=== PATIENT | female | born 1935 | race Caucasian/White ===

== ENCOUNTER 2020-12-29 11:05 | Observation (INO) | payer MEDICARE ==
[~2020-12-29] VITALS: Ht 177.8 cm; Wt 93.0 kg
[~2020-12-29 11:05] MED LIST: COMBIVENT0.074 GM/I INH; COREG6.25 MG PO; ECOTRIN81 MG PO; GLUCOSAMINE H1500 MG PO; HYDROCHLOROTHIA25 MG PO; LIPITOR TAB 2020 MG PO; LOTENSIN20 MG PO; NEURONTIN400 MG PO; NORCO 5-325 TA1 EACH PO; NORVASC2.5 MG PO; PLAVIX 75 MG TA75 MG PO; PROTONIX40 MG PO
[2020-12-29 11:52] LABS: HEMOGLOBIN 16.5 gm/dl (12.3-15.3); RED BLOOD COUNT 5.37 M/UL (4.00-5.10); WHITE BLOOD COUNT 7.8 K/UL (4.5-11.0)
[2020-12-29 12:14] LABS: BUN/CREATININE RATIO 14 (0-10)
[2020-12-29] MEDS ORDERED: MELOXICAM5 MG PO (15:11)
[2020-12-30 02:17] LABS: WHITE BLOOD COUNT 8.1 K/UL (4.5-11.0)
[2020-12-30 02:22] LABS: HEMOGLOBIN 14.4 gm/dl (12.3-15.3); RED BLOOD COUNT 4.69 M/UL (4.00-5.10)
[2020-12-30 02:42] LABS: BUN/CREATININE RATIO 16 (0-10)
== END 2020-12-30 13:19 | disposition home or self-care (01) ==
LOC: ER1 11:05 → CDU 12:48 → M/S 14:44
PROVIDERS: Emergency Medicine; Physician Assistant Medical; ADMIT Internal Medicine
DX: R07.89 Other chest pain (principal); R79.1 Abnormal coagulation profile; I25.10 Atherosclerotic heart disease of native coronary artery without angina pectoris; I10 Essential (primary) hypertension; E11.9 Type 2 diabetes mellitus without complications; E78.5 Hyperlipidemia, unspecified; Z20.822 Contact with and (suspected) exposure to COVID-19; Z86.73 Personal history of transient ischemic attack (TIA), and cerebral infarction without residual deficits; Z95.5 Presence of coronary angioplasty implant and graft; Z79.82 Long term (current) use of aspirin; Z90.2 Acquired absence of lung [part of]; Z79.1 Long term (current) use of non-steroidal anti-inflammatories (NSAID); Z79.899 Other long term (current) drug therapy
CPT/HCPCS: ECHO; 36415; 70450; 71045; 71275; 80048; 80053; 82550; 82553; 82962; 83735; 83874; 84484; 85025; 85027; 85379; 93005; 93306; 99285; G0378; Q9967; U0002

== ENCOUNTER → 2021-03-28 | Outpatient (CLI) | payer MEDICARE ==
[~2021-03-28] MED LIST changes: +MELOXICAM5 MG PO
[2021-03-28 12:27] LABS: HEMOGLOBIN 15.1 gm/dl (12.3-15.3); RED BLOOD COUNT 4.95 M/UL (4.00-5.10); WHITE BLOOD COUNT 6.7 K/UL (4.5-11.0)
[2021-03-28 16:58] LABS: BUN/CREATININE RATIO 17 (0-10)
[2021-04-01 13:11] LABS: CHOLESTEROL, TOTAL 151 mg/dL (100-199); HDL SIZE 8.7 nm (>=9.2); HDL-C 42 mg/dL (>39); HDL-P (TOTAL) 29.5 umol/L (>=30.5); LARGE HDL-P 3.3 umol/L (>=4.8); LDL SIZE 20.4 nm (>20.5); LDL SIZE 20.4 nm (>=20.8); LDL-C 84 mg/dL (0-99); LDL-P 1110 nmol/L (<1000); LP-IR SCORE 69 (<=45); SMALL LDL-P 536 nmol/L (<=527); TRIGLYCERIDES 145 mg/dL (0-149)
== END ==
LOC: LAB 10:33
PROVIDERS: Emergency Medicine
DX: I10 Essential (primary) hypertension (principal); E78.2 Mixed hyperlipidemia; R73.03 Prediabetes; M13.862 Other specified arthritis, left knee; M13.851 Other specified arthritis, right hip; M13.861 Other specified arthritis, right knee
CPT/HCPCS: 36415; 73502; 73564; 80053; 80061; 83704; 84443; 84550; 85025

== ENCOUNTER 2021-08-02 17:17 | Emergency (ER) | payer MEDICARE | END 2021-08-02 20:36 | disposition left against medical advice (07) | LOC: ER1 17:17 | DX: R06.02 Shortness of breath (principal); I48.91 Unspecified atrial fibrillation; Z79.01 Long term (current) use of anticoagulants; E78.5 Hyperlipidemia, unspecified; I10 Essential (primary) hypertension; Z86.73 Personal history of transient ischemic attack (TIA), and cerebral infarction without residual deficits | CPT/HCPCS: 82550; 82553; 83874; 84484; 93005; 99285 ==

== ENCOUNTER → 2021-08-02 | Outpatient (CLI) | payer MEDICARE ==
[~2021-08-02] MED LIST changes: +CARDIZEM CD120 MG PO; +ELIQUIS5 M1 PO; +MELOXICAM15 MG PO; -MELOXICAM5 MG PO
[2021-08-02 10:16] LABS: HEMOGLOBIN 14.6 gm/dl (12.3-15.3); RED BLOOD COUNT 4.85 M/UL (4.00-5.10); WHITE BLOOD COUNT 7.1 K/UL (4.5-11.0)
[2021-08-02 10:46] LABS: BUN/CREATININE RATIO 18 (0-10)
== END ==
LOC: LAB 09:39
PROVIDERS: Nurse Practitioner
DX: R06.02 Shortness of breath (principal); I48.20 Chronic atrial fibrillation, unspecified; R53.83 Other fatigue; J84.9 Interstitial pulmonary disease, unspecified
CPT/HCPCS: 36415; 71046; 80053; 83880; 85025; 85379; 93005

== ENCOUNTER → 2021-08-11 | Outpatient (CLI) | payer MEDICARE ==
[2021-08-11 09:01] LABS: HEMOGLOBIN 14.5 gm/dl (12.3-15.3); RED BLOOD COUNT 4.77 M/UL (4.00-5.10); WHITE BLOOD COUNT 6.9 K/UL (4.5-11.0)
[2021-08-11 09:23] LABS: BUN/CREATININE RATIO 16 (0-10)
== END ==
LOC: LAB 08:41
PROVIDERS: Emergency Medicine
DX: M15.8 Other polyosteoarthritis (principal); I10 Essential (primary) hypertension; E78.2 Mixed hyperlipidemia
CPT/HCPCS: 36415; 80053; 84443; 85025

== ENCOUNTER → 2021-08-14 | Outpatient (CLI) | payer MEDICARE ==
[2021-08-16 14:13] LABS: CHOLESTEROL, TOTAL 131 mg/dL (100-199); HDL SIZE 9.4 nm (>=9.2); HDL-C 48 mg/dL (>39); HDL-P (TOTAL) 29.7 umol/L (>=30.5); LARGE HDL-P 5.1 umol/L (>=4.8); LDL SIZE 20.6 nm (>20.5); LDL SIZE 20.6 nm (>=20.8); LDL-C 65 mg/dL (0-99); LDL-P 818 nmol/L (<1000); LP-IR SCORE 50 (<=45); SMALL LDL-P 408 nmol/L (<=527); TRIGLYCERIDES 97 mg/dL (0-149); VLDL SIZE 46.3 nm (<=46.6)
== END ==
LOC: LAB 09:38
PROVIDERS: Emergency Medicine
DX: I10 Essential (primary) hypertension (principal); E78.2 Mixed hyperlipidemia; M15.8 Other polyosteoarthritis
CPT/HCPCS: 36415; 80061; 83704

== ENCOUNTER → 2021-10-24 | Outpatient (CLI) | payer MEDICARE | LOC: KOH-I 10-21 10:45 | DX: M48.061 Spinal stenosis, lumbar region without neurogenic claudication (principal); M47.22 Other spondylosis with radiculopathy, cervical region; S33.100A Subluxation of unspecified lumbar vertebra, initial encounter | CPT/HCPCS: 72148 ==

== ENCOUNTER → 2021-11-15 | Outpatient (CLI) | payer MEDICARE ==
[2021-11-15 10:18] LABS: BUN/CREATININE RATIO 14 (0-10)
== END ==
LOC: LAB 09:20
PROVIDERS: Emergency Medicine
DX: I10 Essential (primary) hypertension (principal); E78.2 Mixed hyperlipidemia
CPT/HCPCS: 36415; 80048

== ENCOUNTER → 2021-11-28 | Outpatient (CLI) | payer MEDICARE ==
[~2021-11-28] MED LIST changes: +ELIQUIS5 MG PO; +LISINOPRIL10 MG PO; +MULTIPLE VITAM1 EACH PO; -NEURONTIN400 MG PO; +NEURONTIN800 MG PO; +RED YEAST RICE600 M1 PO
== END ==
LOC: KOH-I 14:30
DX: M79.605 Pain in left leg (principal); M79.604 Pain in right leg; I73.89 Other specified peripheral vascular diseases
CPT/HCPCS: 93925

== ENCOUNTER 2021-11-30 10:02 | Inpatient (IN) | payer MEDICARE ==
[~2021-11-30] VITALS: Ht 175.3 cm; Wt 88.5 kg
[~2021-11-30 10:02] MED LIST changes: -COREG6.25 MG PO; -ECOTRIN81 MG PO; -ELIQUIS5 MG PO; -LIPITOR TAB 2020 MG PO; -LISINOPRIL10 MG PO; -MULTIPLE VITAM1 EACH PO; -NEURONTIN800 MG PO; -RED YEAST RICE600 M1 PO
[2021-11-30 10:48] LABS: HEMOGLOBIN 15.5 gm/dl (12.3-15.3); RED BLOOD COUNT 5.24 M/UL (4.00-5.10); WHITE BLOOD COUNT 7.1 K/UL (4.5-11.0)
[2021-11-30 11:17] LABS: BUN/CREATININE RATIO 22 (0-10)
[2021-11-30] MEDS ORDERED: LISINOPRIL10 MG PO (14:51)
[2021-11-30] MEDS ORDERED: ELIQUIS5 MG PO (14:54)
[2021-11-30] MEDS ORDERED: MULTIPLE VITAM1 EACH PO (14:55)
[2021-11-30] MEDS ORDERED: RED YEAST RICE600 M1 PO (14:57)
[2021-11-30] MEDS ORDERED: ECOTRIN81 MG PO (17:50)
[2021-11-30] MEDS ORDERED: COREG6.25 MG PO (17:51)
[2021-11-30] MEDS ORDERED: NEURONTIN800 MG PO (17:52)
[2021-11-30] MEDS ORDERED: LIPITOR TAB 2020 MG PO (17:55)
[2021-12-01 07:16] LABS: HEMOGLOBIN 14.3 gm/dl (12.3-15.3); RED BLOOD COUNT 4.95 M/UL (4.00-5.10); WHITE BLOOD COUNT 7.4 K/UL (4.5-11.0)
[2021-12-01 07:50] LABS: BUN/CREATININE RATIO 17 (0-10)
[2021-12-02 02:14] LABS: HEMOGLOBIN 14.2 gm/dl (12.3-15.3); RED BLOOD COUNT 4.86 M/UL (4.00-5.10); WHITE BLOOD COUNT 9.4 K/UL (4.5-11.0)
[2021-12-02 02:51] LABS: BUN/CREATININE RATIO 21 (0-10)
[2021-12-03 03:13] LABS: RED BLOOD COUNT 4.78 M/UL (4.00-5.10); WHITE BLOOD COUNT 9.1 K/UL (4.5-11.0)
[2021-12-03 03:36] LABS: BUN/CREATININE RATIO 21 (0-10)
[2021-12-03] MEDS ORDERED: BETAPACE 80MG T80 MG PO (11:07)
[2021-12-03] MEDS ORDERED: OMNICEF 300 MG300 MG PO (11:11)
[2021-12-03] MEDS ORDERED: LISINOPRIL20 MG PO (12:43)
[2021-12-03 17:09] LABS: ORGANISM ID Not indicated. (.); SPECIMEN SOURCE Urine (.); STREPTOCOCCUS PNEUMONIAE AG Negative (Negative)
== END 2021-12-03 13:10 | disposition home or self-care (01) | DRG 308 ==
LOC: ER1 10:02 → PROG CARE 13:05 → CDU 13:05 → PROG CARE 16:50
PROVIDERS: Emergency Medicine; ADMIT Internal Medicine
PROC: B24BZZZ Ultrasonography of Heart with Aorta (ICD-10-PCS; principal; 2021-12-01)
DX: I48.0 Paroxysmal atrial fibrillation (principal); J18.9 Pneumonia, unspecified organism; I16.1 Hypertensive emergency; Z20.822 Contact with and (suspected) exposure to COVID-19; I25.10 Atherosclerotic heart disease of native coronary artery without angina pectoris; E78.5 Hyperlipidemia, unspecified; I65.21 Occlusion and stenosis of right carotid artery; Z79.01 Long term (current) use of anticoagulants; Z79.82 Long term (current) use of aspirin; Z86.73 Personal history of transient ischemic attack (TIA), and cerebral infarction without residual deficits; Z90.710 Acquired absence of both cervix and uterus; Z98.42 Cataract extraction status, left eye; Z98.41 Cataract extraction status, right eye; Z82.49 Family history of ischemic heart disease and other diseases of the circulatory system; Z82.3 Family history of stroke; Z95.5 Presence of coronary angioplasty implant and graft
CPT/HCPCS: ECHO; 36415; 70450; 71045; 80053; 82550; 82553; 82962; 83036; 83540; 83550; 83605; 83735; 83880; 84100; 84484; 85025; 85027; 87040; 87086; 87278; 87899; 93005; 93306; 93880; 96374; 96375; 97161; 97166; 99285; J0360; J0696; J2270; J2543; J7050; U0002

== ENCOUNTER → 2022-03-05 | Outpatient (CLI) | payer MEDICARE ==
[~2022-03-05] MED LIST changes: +BETAPACE 80MG T80 MG PO; +COREG6.25 MG PO; +ECOTRIN81 MG PO; +ELIQUIS5 MG PO; +LIPITOR TAB 2020 MG PO; +LISINOPRIL10 MG PO; +LISINOPRIL20 MG PO; +MULTIPLE VITAM1 EACH PO; +NEURONTIN800 MG PO; +OMNICEF 300 MG300 MG PO; +RED YEAST RICE600 M1 PO
[2022-03-05 10:53] LABS: BUN/CREATININE RATIO 17 (0-10)
== END ==
LOC: LAB 09:27
PROVIDERS: Emergency Medicine
DX: I10 Essential (primary) hypertension (principal); M13.861 Other specified arthritis, right knee; I48.0 Paroxysmal atrial fibrillation; R73.03 Prediabetes
CPT/HCPCS: 36415; 80048; 83036

== ENCOUNTER 2022-05-06 09:30 | Emergency (ER) | payer MEDICARE | END 2022-05-06 11:32 | disposition left against medical advice (07) | LOC: ER1 09:30 | DX: Z53.21 Procedure and treatment not carried out due to patient leaving prior to being seen by health care provider (principal) ==